=== PATIENT | female | born 1945 | race Caucasian/White ===

== ENCOUNTER 2016-10-21 08:36 | Emergency (ER) | payer MEDICARE, BC ==
[2016-10-21 08:45] VITALS: BP 129/68
--- NOTE | 2016-10-21 10:10 | UC ---
Throat Pain/Nasal Abhijit HPI - HPI Summary HPI Summary: complaint of cough that started 4 days ago nasal congestion , scratchy throat for 1 day non productive cough denies fever and chills denies headaches denies shortness of breath, achiness , N/V/D denies seasonl allergies took mucinex without relief - History of Current Complaint Chief Complaint: UCRespiratory Stated Complaint: COUGH Time Seen by Provider: 10/21/16 10:00 Hx Obtained From: Patient - Allergies/Home Medications Allergies/Adverse Reactions: Allergies Allergy/AdvReac Type Severity Reaction Status Date / Time Amoxicillin Allergy Intermediate Rash Verified 10/21/16 08:45 Penicillins Allergy Intermediate Rash Verified 10/21/16 08:45 Clindamycin Allergy Mild Rash Verified 10/21/16 08:45 Erythromycin Allergy Mild Rash Verified 10/21/16 08:45 Lincomycin Allergy Mild Rash Verified 10/21/16 08:45 Home Medications: Home Medications Lansoprazole [Prevacid] 30 mg PO DAILY 10/21/16 [History Confirmed 10/21/16] PMH/Surg Hx/FS Hx/Imm Hx Previously Healthy: Yes Cardiovascular History: Hypertension - Surgical History Surgical History: Yes Surgery Procedure, Year, and Place: Hysterectomy. Tonsillectomy - Family History Known Family History: Positive: Hypertension - mother Negative: Cardiac Disease, Diabetes - Social History Occupation: Retired Lives: With Family Alcohol Use: Rare Substance Use Type: None Smoking Status (MU): Never Smoked Tobacco Review of Systems Constitutional: Negative Skin: Negative Eyes: Negative ENT: Sore Throat, Ear Ache, Nasal Discharge Respiratory: Cough Cardiovascular: Negative Gastrointestinal: Negative Genitourinary: Negative Motor: Negative Neurovascular: Negative Musculoskeletal: Negative Neurological: Negative Psychological: Negative All Other Systems Reviewed And Are Negative: Yes Physical Exam Triage Information Reviewed: Yes Appearance: No Pain Distress, Well-Nourished Vital Signs: Initial Vital Signs Temp 98.2 F 10/21/16 08:41 Pulse 66 10/21/16 08:41 Resp 16 10/21/16 08:41 BP 129/68 10/21/16 08:41 Pulse Ox 99 10/21/16 08:41 Vital Signs Reviewed: Yes Eyes: Positive: Conjunctiva Clear ENT: Positive: Pharynx normal, Nasal congestion, Nasal drainage, TMs normal Neck: Positive: No Lymphadenopathy Respiratory: Positive: Lungs clear, Normal breath sounds, No respiratory distress, No accessory muscle use Cardiovascular: Positive: RRR, No Murmur, Pulses Normal Abdomen Description: Positive: Nontender, Soft Bowel Sounds: Positive: Present Musculoskeletal: Positive: No Edema Neurological: Positive: Alert Psychological Exam: Normal Skin Exam: Normal Throat Pain/Nasal Course/Dx - Differential Dx/Diagnosis Differential Diagnosis/HQI/PQRI: Pharyngitis, Sinusitis, URI Provider Diagnoses: URI Discharge - Discharge Plan Condition: Stable Disposition: HOME Patient Education Materials: Upper Respiratory Infection (ED) Referrals: Non Staff,Doctor [Primary Care Provider] - [facility] [facility] [place] [facility] [place]Outside] Additional Instructions: Increase fluids and rest Take acetaminophen or ibuprofen for fever or pain Please review your discharge instructions. If your symptoms do not improve please call your primary care provider or return to urgent care.
== END 2016-10-21 10:33 | disposition home or self-care (01) ==
LOC: UCCORT 08:36
DX: J06.9 Acute upper respiratory infection, unspecified (principal)
CPT/HCPCS: 99202; G0463